=== PATIENT | female | born 1980 | race Caucasian/White ===

== ENCOUNTER 2020-04-21 22:53 | Emergency (ER) | payer OTHER ==
--- NOTE | 2020-04-21 23:06 | ED Physician Documentation ---
PD HPI FEMALE - Stated complaint Stated Complaint: F - Chief complaint Chief Complaint: Abd Pain - History obtained from History obtained from: Patient - History of Present Illness Timing - onset: Enter time (22:30) Timing - details: Abrupt onset Pain level max: 2 (suprapubic cramping, episodic) Pain level max: 0 Associated symptoms: Pelvic pain (mild, intermittent suprapubic cramping that has resolved). 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 She had an US approximately 3 weeks ago which she says showed IUP with what sounds like subchorionic hemorrhage by her description. Her is via IVF. She has endometriosis and as a result of this she has had right oophorectomy as well as bilateral salpingectomy. she is visiting [place] from [place] Review of Systems Constitutional: denies: Fever, Chills, Sweats GI: reports: Nausea (throughout , no worse tonight). 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) : denies: Dysuria, Hematuria Musculoskeletal: denies: Back pain PD PAST MEDICAL HISTORY - Past Medical History Past Medical History: Yes : Other (endometriosis) - Past Surgical History Past Surgical History: Yes General: Appendectomy /SLIVER HANDLER: Oophrectomy, Other (salpingectomy) - Present Medications Home Medications: Ambulatory Orders Medication Instructions Recorded Confirmed Aripiprazole [Abilify] 20 mg PO DAILY 04/22/20 04/22/20 Cholecalciferol (Vitamin D3) 1 cap PO DAILY 04/22/20 04/22/20 [Vitamin D3] Dextroamphetamine/Amphetamine 30 mg PO DAILY 04/22/20 04/22/20 [Adderall 30 mg Tablet] Vit No.129/Iron/Folic 1 tab PO DAILY 04/22/20 04/22/20 [ One Daily Tablet] Propranolol HCl 60 mg PO DAILY 04/22/20 04/22/20 Sertraline HCl 50 mg PO DAILY 04/22/20 04/22/20 Trazodone HCl 100 mg PO QPM 04/22/20 04/22/20 - Allergies Allergies/Adverse Reactions: Allergies Allergy/AdvReac Type Severity Reaction Status Date / Time lamotrigine Allergy Anaphylaxis Verified 04/21/20 22:58 Penicillins Allergy Hives Verified 04/21/20 22:58 - Social History Does the pt smoke?: No Smoking Status: Never smoker Does the pt drink ETOH?: No Does the pt have substance abuse?: No - Immunizations Immunizations are current?: Yes - POLST Patient has POLST: No PD ED PE NORMAL - Vitals Vital signs reviewed: Yes - General General: Alert and oriented X 3, No acute distress, Well developed/nourished - Cardiac Cardiac: RRR, No murmur - Respiratory Respiratory: No respiratory distress, Clear bilaterally - Abdomen Abdomen: Soft, Non tender, Non distended - Back Back: No CVA TTP - Derm Derm: Normal color, Warm and dry Results - Vitals Vitals: Vital Signs - 24 hr 04/21/20 04/21/20 04/22/20 22:58 23:00 01:46 Temperature 36.6 C 36.6 C 36.6 C Heart Rate 69 69 68 Respiratory 16 16 14 Rate Blood Pressure 122/77 122/77 99/68 O2 Saturation 100 100 100 Oxygen O2 Source Room air - Labs Labs: Laboratory Tests 04/21/20 04/21/20 04/21/20 23:21 23:37 23:37 WBC 12.7 H RBC 4.01 L Hgb 11.8 L Hct 37.5 MCV 93.5 MCH 29.4 MCHC 31.5 L RDW 13.2 Plt Count 268 MPV 11.3 H Neut # (Auto) 9.7 H Lymph # (Auto) 2.3 [place] # (Auto) 0.6 Eos # (Auto) 0.1 Baso # (Auto) 0.1 Absolute Nucleated RBC 0.00 Nucleated RBC % 0.0 Sodium 138 Potassium 3.9 Chloride 104 Carbon Dioxide 26 Anion Gap 8.0 BUN 13 Creatinine 0.8 Estimated GFR (MDRD) 80 L Glucose 104 H Calcium 9.2 HCG, Quant 14744.00 Blood Type 04/21/20 23:37 WBC RBC Hgb Hct MCV MCH MCHC RDW Plt Count MPV Neut # (Auto) Lymph # (Auto) [place] # (Auto) Eos # (Auto) Baso # (Auto) Absolute Nucleated RBC Nucleated RBC % Sodium Potassium Chloride Carbon Dioxide Anion Gap BUN Creatinine Estimated GFR (MDRD) Glucose Calcium HCG, Quant Blood Type O POSITIVE - Rads (name of study) pelvic US 1st trimester Radiology: Prelim report reviewed, See rad report PD MEDICAL DECISION MAKING - ED course Complexity details: reviewed results, re-evaluated patient, considered differential, d/w patient ED course: blood type is O + Mostly reassuring pelvic US with viable IUP with normal heart rate. there is a small subchorionic hemorrhage noted as well as placenta overlying the cervix. These results were d/w patient. She says her bleeding has tapered significantly during ED stay and she has not had more cramping. Advised to f/u with her vegetable tester, next available appointment, and to return to ED if worse in any way Departure - Departure Disposition: 01 Home, Self Care Clinical Impression: First trimester bleeding Condition: Good Instructions: ED Miscarriage Poss Follow-Up: Keily Jiang MD [Primary Care Provider] - Comments: YOUR BLOOD TYPE IS O + Discharge Date/Time: 04/22/20 02:15
[2020-04-21 23:45] LABS: BASOPHILS # (AUTO) 0.1 10^3/uL (0.0-0.1); BASOPHILS % (AUTO) 0.4 %; EOSINOPHILS # (AUTO) 0.1 10^3/uL (0.0-0.7); EOSINOPHILS % (AUTO) 0.8 %; HGB - HEMOGLOBIN 11.8 g/dL (12.0-16.0); LYMPHOCYTES # (AUTO) 2.3 10^3/uL (1.5-3.5); LYMPHOCYTES % (AUTO) 18.1 %; MEAN CORPUSCULAR HEMOGLOBIN 29.4 pg (27.0-31.0); MEAN CORPUSCULAR HGB CONC 31.5 g/dL (32.0-36.0); MEAN CORPUSCULAR VOLUME 93.5 fL (81.0-99.0); MEAN PLATELET VOLUME 11.3 fL (7.9-10.8); MONOCYTES # (AUTO) 0.6 10^3/uL (0.0-1.0); MONOCYTES % (AUTO) 4.5 %; NEUTROPHILS # (AUTO) 9.7 10^3/uL (1.5-6.6); NEUTROPHILS % (AUTO) 75.9 %; PLT - PLATELET COUNT 268 10^3/uL (130-450); RED BLOOD COUNT 4.01 10^6/uL (4.20-5.40); RED CELL DISTRIBUTION WIDTH 13.2 % (12.0-15.0); WHITE BLOOD COUNT 12.7 x10^3/uL (4.8-10.8)
[2020-04-21 23:53] LABS: CALCIUM 9.2 mg/dL (8.5-10.3); CREATININE 0.8 mg/dL (0.4-1.0)
[2020-04-22 01:48] VITALS: BP 99/68
--- NOTE | 2020-04-22 08:46 | Ultrasound Report ---
PROCEDURE: OB First Trimester INDICATIONS: vaginal bleeding, 12 weeks OUTSIDE/PRIOR DATING DATA: Date of conception given to ask: 02/08/2020 LMP-based estimated date of delivery (ZHANNA): 10/31/2020. First dating scan (date and location): 04/21/2020. Estimated date of delivery (ZHANNA) from first dating scan: 10/30/2020. TECHNIQUE: Real-time scanning was performed of the fetus and maternal pelvic organs, with image documentation. COMPARISON: None available FINDINGS: Embryo: There is an intrauterine gestational sac seen, with a pole present, which measures 6 c m, which corresponds to an estimated gestational age of 12 weeks 4 days. cardiac activity is se en, with a measured heart rate of 161 bpm. Mild perigestational/subchorionic hemorrhage can be seen . Placenta previa is seen at this time. Measurement variability in dating: +/- 4 weeks by LMP, +/- 7 days by mean sac diameter (use before 6 weeks gestation if crown-rump length not able to be measured), +/- 5 days by crown-rump length (6-12 weeks gestation). Maternal organs: The right ovary has been removed. The left ovary measures 6.9 x 5 x 4.4 cm and demon strates an area of mixed echogenicity that measures 4.4 x 3 x 2.8 cm. IMPRESSION: Single live intrauterine . No significant discrepancy is found between the estimated gestational age based upon these images and the estimated gestational age based upon the given outside dating. Placenta previa is seen at this time. Attention should be paid to this on any future follow-up studie s. A small amount of subchorionic hemorrhage can be seen. Likely hemorrhagic corpus luteum seen within the left ovary. However, please consider additional ovar aubrie pathology, including torsion. Please consider short-term follow-up. Status post right oophorectomy. Note: No significant discrepancy from the preliminary report. Reviewed by: Adonis Cummins MD on 04/22/2020 7:44 AM [place] Approved by: Adonis Cummins MD on 04/22/2020 7:44 AM [facility] Station ID: [id number]
--- NOTE | 2020-04-22 08:47 | Ultrasound Report ---
PROCEDURE: OB Transvaginal INDICATIONS: vaginal bleeding, 12 weeks OUTSIDE/PRIOR DATING DATA: Date of conception given to ask: 02/08/2020 LMP-based estimated date of de livery (ZHANNA): 10/31/2020. First dating scan (date and location): 04/21/2020. Estimated date of delivery (ZHANNA) from first dating scan: 10/30/2020. TECHNIQUE: Real-time scanning was performed of the fetus an d maternal pelvic organs, with image documentation. COMPARISON: None available FINDINGS: Embryo: T here is an intrauterine gestational sac seen, with a pole present, which measures 6 cm, which c orresponds to an estimated gestational age of 12 weeks 4 days. cardiac activity is seen, with a measured heart rate of 161 bpm. Mild perigestational/subchorionic hemorrhage can be seen. Placenta previa is seen at this time. Measurement variability in dating: +/- 4 weeks by LMP, +/- 7 days by me an sac diameter (use before 6 weeks gestation if crown-rump length not able to be measured), +/- 5 da ys by crown-rump length (6-12 weeks gestation). Maternal organs: The right ovary has been removed. T he left ovary measures 6.9 x 5 x 4.4 cm and demonstrates an area of mixed echogenicity that measures 4.4 x 3 x 2.8 cm. IMPRESSION: Single live intrauterine . No significant discrepancy is found between the estimated gestational age based upon these images and the estimated gestational age based upon the given outside dating. Placenta previa is seen at this time. Attention should be paid to this on any future follow-up studies. A small amount of subchorionic hemorrhage can be seen. Li jamia hemorrhagic corpus luteum seen within the left ovary. However, please consider additional ovaria n pathology, including torsion. Please consider short-term follow-up. Status post right oophorectomy . Note: No significant discrepancy from the preliminary report. Reviewed by: Adonis Cummins MD on 04/22/2020 7:46 AM [place] Approved by: Adonis Cummins MD on 04/22/2020 7:46 AM [facility] Station ID: [id number]
== END 2020-04-22 02:15 | disposition home or self-care (01) ==
LOC: ED 22:53
DX: O44.11 Complete placenta previa with hemorrhage, first trimester (principal); O41.8X10 Other specified disorders of amniotic fluid and membranes, first trimester, not applicable or unspecified; O09.511 Supervision of elderly primigravida, first trimester; O09.811 Supervision of pregnancy resulting from assisted reproductive technology, first trimester; Z3A.12 12 weeks gestation of pregnancy; Z90.721 Acquired absence of ovaries, unilateral
CPT/HCPCS: 36415; 80048; 84702; 85025; 86900; 86901; 99284